=== PATIENT | male | born 1995 | race Caucasian/White ===

== ENCOUNTER 2019-03-20 11:56 | Emergency (ER) | payer OTHER, SELFPAY ==
[2019-03-20 12:03] VITALS: BP 135/97; PULSE 83; RESP 20; TEMP 36.3; O2SAT 100
--- NOTE | 2019-03-20 12:10 | ED.SKABFB ---
HPI - Skin/Abscess/Foreign Bdy General Chief complaint: Skin/Abscess/Foreign Body Stated complaint: cyst on lower abdo and nausea Time Seen by Provider: 03/20/19 12:10 Source: patient and RN notes reviewed Mode of arrival: ambulatory Limitations: no limitations History of Present Illness HPI narrative: 23 year old male who presents to [facility] with 4 day history of cyst to his left lower abdomen. Patient states that he drained the area 2 days ago with purulent drainage obtained with pain and redness decreased. Patient states that he had some Clindamycin and he has been taking it for the past 3 days and also Ibuprofen. Patient states today he has had nausea and vomiting and a sore throat, does have history of strep and wants checked. He states he is unsure if antibiotic could be making him nauseated. Patient has 0.5 cm lesion to left lower abdomen with miild surrounding redness, no pustular formation in wound. MD complaint: abscess/boil (left lower abdomen) and other (sore throat ) Onset (ago): day(s) (3) Tetanus up to date: unsure Severity: moderate Severity scale (1-10): 4 Quality: aching Pain Consistency: intermittent Relieving factors: none Exacerbating factors: palpation Associated symptoms: nausea, vomiting and other (sore throat) Treatments prior to arrival: antibiotic and other (drained abscess) Related Data Allergies Allergy/AdvReac Type Severity Reaction Status Date / Time No Known Allergies Allergy Verified 03/20/19 12:17 Review of Systems Review of Systems: All systems reviewed & are unremarkable except as noted in HPI and below Constitutional: Constitutional: Reports as per HPI and Reports no additional constitutional complaints Eyes: Eyes: Reports as per HPI and Reports no additional eye complaints ENT: Reports system reviewed and no additional complaints, except as documented, Reports as per HPI and Reports sore throat Cardiovascular: Cardiovascular: Reports as per HPI and Reports no additional cardiovascular complaints Respiratory: Respiratory: Reports as per HPI and Reports no additional respiratory complaints Gastrointestinal: Gastrointestinal: Reports as per HPI, Reports nausea and Reports vomiting Genitourinary: Genitourinary: Reports no additional male genitourinary complaints and Reports as per HPI Musculoskeletal: Musculoskeletal: Reports no additional musculoskeletal complaints and Reports as per HPI Integumentary/Breasts: Skin/Breast: Reports system reviewed and no additional complaints, except as docu, Reports as per HPI and Reports skin ulcer (abscess left lower abdomen) Neurologic: Reports system reviewed and no additional complaints, except as documented and Reports as per HPI Psychiatric: Psychiatric: Reports no additional psychiatric complaints and Reports as per HPI Endocrine: Endocrine: Reports no additional endocrine complaints and Reports as per HPI Hematologic/Lymphatic: Hematologic/Lymphatic: Reports no additional hematologic/lymphatic complaints and Reports as per HPI Allergic/Immunologic: Allergic/Immunologic: Reports no additional allergic/immunologic complaints and Reports as per HPI PMFSH Past Medical History Medical History (Updated 03/23/19 @ 08:07 by Amanda Carrizales NP) Abscess Strep throat Social History Social History (Updated 03/22/19 @ 22:16 by Amanda Carrizales NP) Smoking status: Never smoker Living arrangements: with family Gender identity (if verbalized by the patient): Male Comments at time of signature agree with nursing documentation of medication reconciliation, past medical, surgical, family and social history.. There is no relevant family history pertinent to presenting complaint Exam Const: General: no acute distress and ill appearing (pale) Nutritional Appearance: obese Orientation/consciousness: patient oriented x3 HENMT: Head: normal to inspection Ears: external ears normal and TM's normal bilaterally General nose exam: Normal ext
== END 2019-03-20 12:46 | disposition home or self-care (01) ==
PROVIDERS: Emergency Provider Registered Nurse
DX: L02.211 Cutaneous abscess of abdominal wall (principal); J02.9 Acute pharyngitis, unspecified; R11.2 Nausea with vomiting, unspecified
CPT/HCPCS: 87081; 87880; 99203; G0463

== ENCOUNTER 2019-09-14 00:39 | Emergency (ER) | payer OTHER, SELFPAY ==
--- NOTE | ~2019-09-14 | XR_ITS ---
XR chest 1V portable DATE: 09/14/2019 03:23 INDICATION: Shortness of breath TECHNIQUE: Portable upright AP chest on 09/14/2019 at 0224 hours COMPARISON: None FINDINGS: Normal heart size. No hilar or mediastinal enlargement. No pulmonary infiltrate or consolidation, pleural effusion or pulmonary vascular congestion or pneumo thorax. IMPRESSION: No active cardiopulmonary disease Reviewed, dictated and finalized at location A.
[2019-09-14 00:51] VITALS: BP 128/85; PULSE 105; RESP 20; TEMP 36.2; O2SAT 99
[2019-09-14 01:01] VITALS: O2SAT 99
[2019-09-14 02:51] VITALS: BP 119/65; PULSE 98; RESP 14; TEMP 36.7; O2SAT 99
--- NOTE | 2019-09-14 03:14 | PC.NURSE ---
DIAMOND Melvin orders of COVID 19 swab and chest X-ray on paper charts. DIAMOND Melvin signed written orders.
[2019-09-14 14:35] LABS: SARS-CoV-2 RNA PCR Negative
--- NOTE | 2019-11-06 05:30 | ED.URI ---
HPI - URI/Sore Throat General Chief Complaint: Upper Respiratory Infection Stated Complaint: COUGH, SOB, SNEEZING, ST Time Seen by Provider: 09/14/19 01:30 History of Present Illness HPI Narrative: Patient is a 24-year-old male who presents the ER with concerns for COVID-19. For last 2 days he has had sore throat with cough. He has some difficulty taking a deep breath. Is also had some sneezing. Related Data Home Medications Medication Instructions Recorded Confirmed No Home Medications 09/14/19 09/14/19 Allergies Allergy/AdvReac Type Severity Reaction Status Date / Time No Known Allergies Allergy Verified 09/14/19 00:43 Review of Systems ENT: Reports nasal congestion and Reports sore throat Comments: Positive for sneezing Respiratory: Respiratory: Reports cough and Reports dyspnea PMFSH Past Medical History Medical History (Updated 11/06/19 @ 05:33 by Shahzad Melvin MD) Abscess Strep throat Social History Social History (Updated 03/22/19 @ 22:16 by Amanda Carrizales NP) Smoking status: Never smoker Gender identity (if verbalized by the patient): Male Exam Narrative: Exam Narrative: GENERAL: Well-appearing, well-nourished, and in no acute distress. HEAD: Normocephalic, atraumatic. CHEST: Clear to auscultation. No respiratory distress. HEART: Regular rate and rhythm. Normal peripheral pulses. NEURO: Alert and oriented x3. PSYCH: Normal mood and affect. Course Course Emergency Course: X-ray negative. COVID swab sent. Discharge home. Vital Signs Vital signs: Vital Signs Temperature 97.1 F L 09/14/19 00:51 Pulse Rate 105 H 09/14/19 00:51 Respiratory Rate 20 09/14/19 00:51 Blood Pressure 128/85 09/14/19 00:51 Pulse Oximetry 99 09/14/19 00:51 Temperature 98.1 F 09/14/19 02:51 Pulse Rate 98 09/14/19 02:51 Respiratory Rate 14 09/14/19 02:51 Blood Pressure 119/65 09/14/19 02:51 Pulse Oximetry 99 09/14/19 02:51 MDM - URI/Sore Throat Lab Data Labs: Lab Results 09/14/19 Range/Units 01:48 SARS-CoV-2 RNA (RT-PCR) Negative Discharge Plan Discharge Clinical Impression: Upper respiratory infection, Person under investigation for COVID-19 Patient Disposition: Home, Self-Care Condition: Stable Instructions: Antibiotic Form Prescriptions: No Action No Home Medications RF: 0 Interventions: Discharge Disposition Last Done: 09/14/19 02:51 IV Stop Time Documented Last Done: 09/14/19 03:16 Follow-up/Referrals: PHYSICIAN,COMPILATION CLERK [Primary Care Provider] - Discharge Date/Time: 09/14/19 02:55
== END 2019-09-14 02:55 | disposition home or self-care (01) ==
PROVIDERS: Emergency Provider Emergency Medicine
DX: J06.9 Acute upper respiratory infection, unspecified (principal); Z20.828 Contact with and (suspected) exposure to other viral communicable diseases
CPT/HCPCS: 71045; 87081; 87635; 87880; 99283; C9803; U0003

== ENCOUNTER 2020-07-28 18:44 | Emergency (ER) | payer OTHER, SELFPAY ==
--- NOTE | 2020-07-28 19:16 | PC.NURSE ---
Pt left before triage, states he will be going to an urgent care. Registration to be notified.
== END 2020-07-28 21:36 | disposition left against medical advice (07) ==
DX: Z53.21 Procedure and treatment not carried out due to patient leaving prior to being seen by health care provider (principal)
CPT/HCPCS: 99199